=== PATIENT | male | born 1955 | race Caucasian/White ===

== ENCOUNTER 2022-06-06 11:03 | Inpatient (IN) | payer MEDICARE, BC, OTHER ==
[~2022-06-06] VITALS: Ht 175.3 cm; Wt 77.7 kg
[2022-06-06] VITALS (7 sets, daily range): BP systolic 118–154; BP diastolic 67–89
[~2022-06-06 11:03] MED LIST: LIDOCAINE 2% 100MG/5ML SDV (FOR ANES.) As Ordered ONE; MIDAZOLAM INJ 2MG/2ML VIAL (J2250 PER 1MG) As Ordered ONE; OMEP10CASR PO; PROAAER10 INH; ROCURONIUM BROMIDE 50 MG/5 ML VIAL As Ordered ONE; fentaNYL 250 MCG/5 ML INJECTION As Ordered ONE; propofoL 200 MG/20 ML VIAL As Ordered ONE
[2022-06-06] MEDS ORDERED: LR 1,000 ML IV SCH ×2 (11:20→17:20)
[2022-06-06] MEDS ORDERED: ceFAZolin SOD 2 GM in IV 1 EA IV ONE (11:55)
[2022-06-06] MEDS ORDERED: BUPIVACAINE HCL 0.25% 30ML VIAL As Ordered ONE ×2 (13:21→13:23)
[2022-06-06] MEDS ORDERED: LIDOCAINE 1% SDV 30ML VIAL As Ordered ONE (13:21)
[2022-06-06] MEDS ORDERED: HEPARIN SOD (PORCINE) 5000UNITS/ML 1ML VIAL/SYRINGE As Ordered ONE (13:29)
[2022-06-06] MEDS ORDERED: NS 1,000 ML IV SCH (13:45)
[2022-06-06] MEDS ORDERED: PHENYLephrine 500MCG 5ML (100MCG/ML) SYRINGE As Ordered ONE (13:45)
[2022-06-06] MEDS ORDERED: PERCOCET 5MG/325MG TAB PO PRN (13:45)
[2022-06-06] MEDS ORDERED: ONDANSETRON 4MG 2ML VIAL IV PRN ×2 (13:45→17:20)
[2022-06-06] MEDS ORDERED: dexameTHASONE 4 MG/ML 1ML VIAL (J1100 PER 1MG) As Ordered ONE (13:52)
[2022-06-06] MEDS ORDERED: ALBUTEROL 90 MCG/ACT 8GM HFA INHALER INH PRN (13:55)
[2022-06-06] MEDS ORDERED: ACETAMINOPHEN 1000MG 100ML IV BTL (OFIRMEV) (J0131 PER 10MG) As Ordered ONE (14:06)
[2022-06-06] MEDS ORDERED: ONDANSETRON 4MG 2ML VIAL As Ordered ONE (14:06)
[2022-06-06] MEDS ORDERED: ROCURONIUM BROMIDE 50 MG/5 ML VIAL As Ordered ONE (14:06)
[2022-06-06] MEDS ORDERED: METOCLOPRAMIDE INJ 10MG/2ML VIAL (J2765 PER 1) As Ordered ONE (14:06)
[2022-06-06] MEDS ORDERED: HYDROmorphone HCL 2MG/ML 1ML VIAL As Ordered ONE (14:08)
[2022-06-06] MEDS ORDERED: HEPARIN SOD (PORCINE) 5000UNITS/ML 1ML VIAL/SYRINGE SQ ONE (14:25)
[2022-06-06] MEDS ORDERED: fentaNYL 100 MCG/2 ML INJECTION IV PRN (17:20)
[2022-06-06 18:02] LABS: HEMOGLOBIN 16.1 g/dl (13.5-17.5); MEAN CORPUSCULAR HGB CONC 32.9 g/dl (32.0-36.5); MEAN CORPUSCULAR VOLUME 94.4 fl (80.0-96.0); PLATELET COUNT, AUTOMATED 241 10^3/uL (150-450); RED BLOOD COUNT 5.19 10^6/uL (4.30-6.10); WHITE BLOOD COUNT 16.1 10^3/uL (4.0-10.0)
[2022-06-06] MEDS: PERCOCET 5MG/325MG TAB PO PRN (18:04)
[2022-06-06 18:30] LABS: CALCIUM LEVEL 9.8 MG/DL (8.8-10.2); CREATININE FOR GFR 1.29 MG/DL (0.70-1.30); GLOMERULAR FILTRATION RATE 59.1 (>49)
[2022-06-06] MEDS: DOCUSATE SODIUM 100MG CAPSULE PO SCH (21:27)
[2022-06-06] MEDS: ACETAMINOPHEN TAB 650MG DOSE (2X325MG) PO PRN (21:27)
[2022-06-06] MEDS: ceFAZolin SOD 1 GM in D5W MINI-BAG PLUS 50 ML IV SCH (21:28)
[2022-06-06] MEDS: HEPARIN SOD (PORCINE) 5000UNITS/ML 1ML VIAL/SYRINGE SC SCH (21:28)
[2022-06-07] MEDS: ACETAMINOPHEN TAB 650MG DOSE (2X325MG) PO PRN ×3 (03:38→18:20)
[2022-06-07 03:50] VITALS: BP 129/70
[2022-06-07] MEDS: ceFAZolin SOD 1 GM in D5W MINI-BAG PLUS 50 ML IV SCH (05:44)
[2022-06-07] MEDS: HEPARIN SOD (PORCINE) 5000UNITS/ML 1ML VIAL/SYRINGE SC SCH ×3 (05:44→21:13)
[2022-06-07 06:22] LABS: HEMATOCRIT 42.8 % (42.0-52.0); HEMOGLOBIN 14.3 g/dl (13.5-17.5); MEAN CORPUSCULAR HEMOGLOBIN 31.2 pg (27.0-33.0); MEAN CORPUSCULAR HGB CONC 33.4 g/dl (32.0-36.5); MEAN CORPUSCULAR VOLUME 93.2 fl (80.0-96.0); PLATELET COUNT, AUTOMATED 213 10^3/uL (150-450); RED BLOOD COUNT 4.59 10^6/uL (4.30-6.10); WHITE BLOOD COUNT 12.1 10^3/uL (4.0-10.0)
[2022-06-07 07:02] LABS: BLOOD UREA NITROGEN 19 MG/DL (7-18); CALCIUM LEVEL 9.2 MG/DL (8.8-10.2); CARBON DIOXIDE LEVEL 25 MEQ/L (21-32); CHLORIDE LEVEL 103 MEQ/L (98-107); CREATININE FOR GFR 0.98 MG/DL (0.70-1.30); GLOMERULAR FILTRATION RATE > 60.0 (>49); GLUCOSE, FASTING 104 MG/DL (70-100); POTASSIUM SERUM 4.6 MEQ/L (3.5-5.1); SODIUM LEVEL 134 MEQ/L (136-145)
[2022-06-07] MEDS: DOCUSATE SODIUM 100MG CAPSULE PO SCH ×2 (08:51→21:13)
[2022-06-07 10:00] VITALS: BP 128/70
[2022-06-07 14:00] VITALS: BP 129/70
[2022-06-07 18:00] VITALS: BP 119/57
[2022-06-07 21:13] VITALS: BP 136/71
[2022-06-07] MEDS: PERCOCET 5MG/325MG TAB PO PRN (21:23)
[2022-06-08 02:36] VITALS: BP 118/68
[2022-06-08] MEDS: HEPARIN SOD (PORCINE) 5000UNITS/ML 1ML VIAL/SYRINGE SC SCH (05:14)
[2022-06-08 05:54] VITALS: BP 131/70
[2022-06-08] MEDS: ACETAMINOPHEN TAB 650MG DOSE (2X325MG) PO PRN (06:05)
[2022-06-08 07:32] LABS: HEMATOCRIT 42.6 % (42.0-52.0); HEMOGLOBIN 14.2 g/dl (13.5-17.5); MEAN CORPUSCULAR HEMOGLOBIN 31.6 pg (27.0-33.0); MEAN CORPUSCULAR HGB CONC 33.3 g/dl (32.0-36.5); MEAN CORPUSCULAR VOLUME 94.7 fl (80.0-96.0); PLATELET COUNT, AUTOMATED 200 10^3/uL (150-450); WHITE BLOOD COUNT 9.7 10^3/uL (4.0-10.0)
[2022-06-08] MEDS ORDERED: PERCOCET PO (07:44)
[2022-06-08] MEDS ORDERED: COLA100C5 PO (07:44)
[2022-06-08] MEDS ORDERED: BACT800T5 PO (07:44)
[2022-06-08] MEDS: DOCUSATE SODIUM 100MG CAPSULE PO SCH (07:50)
[2022-06-08 08:01] LABS: BLOOD UREA NITROGEN 15 MG/DL (7-18); CALCIUM LEVEL 9.5 MG/DL (8.8-10.2); CARBON DIOXIDE LEVEL 29 MEQ/L (21-32); CHLORIDE LEVEL 103 MEQ/L (98-107); CREATININE FOR GFR 0.85 MG/DL (0.70-1.30); GLOMERULAR FILTRATION RATE > 60.0 (>49); GLUCOSE, FASTING 82 MG/DL (70-100); POTASSIUM SERUM 4.4 MEQ/L (3.5-5.1); SODIUM LEVEL 135 MEQ/L (136-145)
== END 2022-06-08 10:46 | disposition home or self-care (01) | DRG 708 ==
LOC: M OR 11:03 → M MSPAV 18:45
PROVIDERS: ADMIT Urology; ATTEND Urology
PROC: 07BC4ZZ Excision of Pelvis Lymphatic, Percutaneous Endoscopic Approach (ICD-10-PCS; 2022-06-06)
PROC: 8E0W4CZ Robotic Assisted Procedure of Trunk Region, Percutaneous Endoscopic Approach (ICD-10-PCS; 2022-06-06)
PROC: 0VT04ZZ Resection of Prostate, Percutaneous Endoscopic Approach (ICD-10-PCS; principal; 2022-06-06 13:00)
DX: C61 Malignant neoplasm of prostate (principal); Z88.0 Allergy status to penicillin; Z88.5 Allergy status to narcotic agent; Z88.8 Allergy status to other drugs, medicaments and biological substances; Z91.013 Allergy to seafood; Z91.018 Allergy to other foods